=== PATIENT | male | born 1940 | race Two or more races ===

== ENCOUNTER 2017-11-08 02:41 | Inpatient (IN) | payer MEDICAID ==
[~2017-11-08] VITALS: Ht 167.6 cm; Wt 68.5 kg
[2017-11-08 03:33] LABS: BASOPHIL % 0.1 % (0-2); PLATELET COUNT 169 x10^3mcL (130-400)
[2017-11-08 03:41] LABS: RED CELL DISTRIBUTION WIDTH 15.9 % (11.5-14.5)
[2017-11-08 03:42] LABS: CARBON DIOXIDE 25.4 mmol/L (21-32); CHLORIDE SERUM 103 mmol/L (98-107); CREATININE SERUM 1.8 mg/dL (0.7-1.3); GLUCOSE SERUM 150 mg/dL (74-106); POTASSIUM SERUM 4.8 mmol/L (3.5-5.1); SODIUM SERUM 135 mmol/L (136-145)
[2017-11-08 03:55] LABS: ALKALINE PHOSPHATASE 99 U/L (46-116); ALT/SGPT 94 U/L (16-63); AST/SGOT 69 U/L (15-37); BILIRUBIN TOTAL 3.26 mg/dL (0.20-1.00)
[2017-11-08 04:11] LABS: ALBUMIN 3.2 g/dL (3.4-5.0); CHOLESTEROL 78 mg/dL (<200); HDL CHOLESTEROL 32 mg/dL (40-60)
[2017-11-08 04:40] LABS: UA SPECIFIC GRAVITY <=1.005 (1.005-1.035); microscopic required? YES; urine erythrocyte 1+ (NEGATIVE)
[2017-11-08] MEDS ORDERED: GLIMEPIRIDE1 M1 PO (05:22)
[2017-11-08] MEDS ORDERED: CLOPIDOGREL75 M1 PO (05:22)
[2017-11-08] MEDS ORDERED: TOPROL XL25 MG PO (05:22)
[2017-11-08] MEDS ORDERED: CIPRO500 MG PO (05:22)
[2017-11-08] MEDS ORDERED: LIPI10 PO (05:22)
[2017-11-08] MEDS ORDERED: MELOXICAM15 M1 PO (05:22)
[2017-11-08] MEDS ORDERED: ASPIR 8181 MG PO (05:23)
[2017-11-08 05:32] LABS: MAGNESIUM 2.3 mg/dL (1.8-2.4); PHOSPHOROUS 3.3 mg/dL (2.5-4.9)
[2017-11-08 05:34] LABS: CHOLESTEROL/HDL RATIO 2.5
[2017-11-08 05:35] LABS: T3 TOTAL 0.48 ng/mL
[2017-11-08 05:37] LABS: FREE T4 1.05 ng/dL (0.76-1.46); FREE THYROXINE INDEX 1.8 ug/dL (1.4-4.5)
[2017-11-08 07:37] LABS: CHLORIDE SERUM 103 mmol/L (98-107); CREATININE SERUM 1.8 mg/dL (0.7-1.3); GLUCOSE SERUM 148 mg/dL (74-106); POTASSIUM SERUM 4.8 mmol/L (3.5-5.1); SODIUM SERUM 136 mmol/L (136-145)
[2017-11-08 08:36] VITALS: BP 160/92
[2017-11-08 13:25] VITALS: BP 155/91
[2017-11-08 17:50] VITALS: BP 165/90
[2017-11-08 21:40] VITALS: BP 167/94
[2017-11-09 05:28] VITALS: BP 157/90
[2017-11-09 06:53] LABS: BASOPHIL % 0.2 % (0-2); PLATELET COUNT 187 x10^3mcL (130-400)
[2017-11-09 07:08] LABS: CALCIUM 8.5 mg/dL (8.5-10.1); CARBON DIOXIDE 22.8 mmol/L (21-32); CHLORIDE SERUM 107 mmol/L (98-107); CREATININE SERUM 1.6 mg/dL (0.7-1.3); GLUCOSE SERUM 159 mg/dL (74-106); POTASSIUM SERUM 4.9 mmol/L (3.5-5.1); SODIUM SERUM 138 mmol/L (136-145)
[2017-11-09 09:48] VITALS: BP 138/81
[2017-11-09 13:31] VITALS: BP 131/74
[2017-11-09] MEDS ORDERED: FLO4 PO (13:39)
[2017-11-09] MEDS ORDERED: BLOOD GLUCOSE1 EAC3 MC (15:23)
[2017-11-09] MEDS ORDERED: BLOOD LANCETS1 EACH MC (15:24)
[2017-11-09] MEDS ORDERED: BLOOD GLUCOSE1 EACH MC (15:25)
[2017-11-09 15:44] LABS: BILIRUBIN DIRECT 0.61 mg/dL (0.0-0.2); BILIRUBIN TOTAL 0.98 mg/dL (0.20-1.00); TOTAL PROTEIN, SERUM 6.8 g/dL (6.4-8.2)
[2017-11-09 21:53] VITALS: BP 140/83
[2017-11-10 05:17] VITALS: BP 147/83
[2017-11-10 07:35] LABS: BASOPHIL % 0.3 % (0-2); PLATELET COUNT 191 x10^3mcL (130-400)
[2017-11-10 07:37] LABS: RED CELL DISTRIBUTION WIDTH 15.1 % (11.5-14.5)
[2017-11-10 09:43] LABS: CALCIUM 8.8 mg/dL (8.5-10.1); CARBON DIOXIDE 22.9 mmol/L (21-32); CHLORIDE SERUM 107 mmol/L (98-107); CREATININE SERUM 1.6 mg/dL (0.7-1.3); GLUCOSE SERUM 116 mg/dL (74-106); SODIUM SERUM 138 mmol/L (136-145)
[2017-11-10 10:17] VITALS: BP 136/84
[2017-11-10 10:25] VITALS: BP 136/84
== END 2017-11-10 11:19 | disposition home or self-care (01) | DRG 52 ==
LOC: ED 02:41 → DU 04:47
PROVIDERS: Emergency Medicine; Family Medicine
DX: G92 Toxic encephalopathy (principal); N17.0 Acute kidney failure with tubular necrosis; E44.0 Moderate protein-calorie malnutrition; R31.9 Hematuria, unspecified; N41.0 Acute prostatitis; Z95.1 Presence of aortocoronary bypass graft; R73.03 Prediabetes; I12.9 Hypertensive chronic kidney disease with stage 1 through stage 4 chronic kidney disease, or unspecified chronic kidney disease; N18.3 Chronic kidney disease, stage 3 (moderate); T38.3X5A Adverse effect of insulin and oral hypoglycemic [antidiabetic] drugs, initial encounter; Y92.89 Other specified places as the place of occurrence of the external cause; Z79.82 Long term (current) use of aspirin; N13.30 Unspecified hydronephrosis; I11.9 Hypertensive heart disease without heart failure
CPT/HCPCS: 76770; 82962; 83880; 84439; J0696; J2354; J3490; J7030; J7042; Q0092

== ENCOUNTER 2019-12-23 09:39 | Emergency (ER) | payer SELFPAY ==
[~2019-12-23] VITALS: Ht 170.2 cm; Wt 63.0 kg
[~2019-12-23 09:39] MED LIST: ASPIR 8181 MG PO; BLOOD GLUCOSE1 EAC3 MC; BLOOD GLUCOSE1 EACH MC; BLOOD LANCETS1 EACH MC; CIPRO500 MG PO; CLOPIDOGREL75 M1 PO; FLO4 PO; GLIMEPIRIDE1 M1 PO; LIPI10 PO; MELOXICAM15 M1 PO; TOPROL XL25 MG PO
[2019-12-23 09:42] VITALS: Ht 170.2 cm; Wt 63.0 kg
[2019-12-23 10:31] LABS: ALBUMIN 3.7 g/dL (3.4-5.0); ALKALINE PHOSPHATASE 74 U/L (46-116); ALT/SGPT 17 U/L (16-63); AST/SGOT 12 U/L (15-37); BILIRUBIN TOTAL 0.5 mg/dL (0.20-1.00); CALCIUM 9.6 mg/dL (8.5-10.1); CARBON DIOXIDE 27.1 mmol/L (21-32); CHLORIDE SERUM 104 mmol/L (98-107); CREATININE SERUM 1.8 mg/dL (0.7-1.3); GLUCOSE SERUM 143 mg/dL (74-106); LIPASE 231 IU/L (73-393); POTASSIUM SERUM 3.9 mmol/L (3.5-5.1); SODIUM SERUM 138 mmol/L (136-145); TOTAL PROTEIN, SERUM 7.4 g/dL (6.4-8.2)
[2019-12-23 10:32] LABS: microscopic required? YES; urine erythrocyte 1+ (NEGATIVE)
[2019-12-23 10:57] LABS: BASOPHIL % 0.3 % (0-2); PLATELET COUNT 212 x10^3mcL (130-400)
[2019-12-23 11:04] LABS: RED CELL DISTRIBUTION WIDTH 15.4 % (11.5-14.5)
[2019-12-23 13:04] VITALS: BP 132/72
== END 2019-12-23 13:04 | disposition home or self-care (01) ==
LOC: ED 09:39
PROVIDERS: Emergency Medicine
DX: K80.20 Calculus of gallbladder without cholecystitis without obstruction (principal); I10 Essential (primary) hypertension; Z98.890 Other specified postprocedural states
CPT/HCPCS: J1885; J2405